=== PATIENT | male | born 1965 | race Caucasian/White ===

== ENCOUNTER 2020-02-29 11:36 | Emergency (ER) | payer OTHER ==
[~2020-02-29] VITALS: Ht 185.4 cm; Wt 118.0 kg
--- NOTE | 2020-02-29 12:08 | NUR ---
PRECEPTOR NOTE: SPOKE WITH AND EXPLAINED NO VISTOR POLICY DUE TO COVID S/S, VERBALIZED UNDERSTANDING, GAVE PT GLASSES FROM .
[2020-02-29] MEDS ORDERED: DEXAMETHASONE 4 MG TABLET ONE (12:45)
[2020-02-29 12:52] LABS: BASOPHILS % (AUTO) 0 % (0-1); EOSINOPHILS % (AUTO) 0 % (1-7); LYMPHOCYTES % (AUTO) 14 % (22-44); MEAN CORPUSCULAR HGB CONC 33.9 g/dL (33.2-36.2); MEAN PLATELET VOLUME 7.3 fL (7.4-10.4); MONOCYTES % (AUTO) 9 % (2-9); NEUTROPHILS % (AUTO) 77 % (42-75); PLATELET COUNT 192 x10^3/uL (130-400); RED BLOOD COUNT 4.91 x10^6/uL (4.38-5.82); RED CELL DISTRIBUTION WIDTH 13.5 % (9.4-14.8)
[2020-02-29 12:53] LABS: MD NO
[2020-02-29] MEDS ORDERED: DEXAMETHASONE 4 MG TABLET PO ONE (13:00)
[2020-02-29 13:05] LABS: ALANINE AMINOTRANSFERASE 44 U/L (12-78); ALBUMIN 3.5 g/dL (3.4-5.0); ANION GAP 5 mmol/L (5-15); CALCIUM 8.2 mg/dL (8.5-10.1); CHLORIDE 109 mmol/L (98-107); CREATININE 1.11 mg/dL (0.7-1.3)
[2020-02-29 13:08] LABS: ALKALINE PHOSPHATASE 110 U/L (45-117); BILIRUBIN,TOTAL 0.6 mg/dL (0.2-1.0); TOTAL PROTEIN 7.4 g/dL (6.4-8.2)
--- NOTE | 2020-02-29 13:56 | NUR ---
SPOKE TO SELVIN FOX TO VERIFY WE DO NOT NEED BLOOD CULTURES DRAWN BEFORE ANTIBIOTICS.
[2020-02-29] MEDS ORDERED: KETOROLAC 30 MG/1 ML IM ONE (14:00)
[2020-02-29] MEDS ORDERED: CEFTRIAXONE 1,000 MG IM ONE (14:00)
[2020-02-29] MEDS ORDERED: ONDANSETRON ODT 4 MG ONE (14:00)
[2020-02-29] MEDS ORDERED: ONDANSETRON ODT 4 MG PO ONE (14:00)
[2020-02-29] MEDS ORDERED: AZITHROMYCIN 500 MG TABLET PO ONE (14:00)
[2020-02-29] MEDS ORDERED: AZITHROMYCIN 250 MG TABLET ONE (14:01)
[2020-02-29] MEDS ORDERED: CEFTRIAXONE 1,000 MG ONE (14:01)
[2020-02-29] MEDS ORDERED: KETOROLAC 30 MG/1 ML ONE (14:01)
[2020-02-29] MEDS ORDERED: AZITHROMYCIN 500 MG TABLET ONE (14:08)
[2020-02-29 15:00] VITALS: BP 119/58
--- NOTE | 2020-02-29 15:01 | NUR ---
Patient/Caregiver given discharge instructions and they have confirmed that they understand the instructions. Patient ambulatory with steady gait.
== END 2020-02-29 15:02 | disposition home or self-care (01) ==
LOC: EDBD 11:36 → ED 11:55
DX: U07.1 COVID-19 (principal); J15.9 Unspecified bacterial pneumonia; R94.31 Abnormal electrocardiogram [ECG] [EKG]
CPT/HCPCS: 71045; 80053; 85025; 87635; 93005; 96372; 99285; J0696; J1885; Q0162